=== PATIENT | female | born 1970 | race Caucasian/White ===

== ENCOUNTER 2021-08-24 12:06 | Outpatient (CLI) | payer OTHER, SELFPAY ==
--- NOTE | 2021-08-24 | XR_ITS ---
WS: [id number] LEFT CALCANEUS TECHNIQUE: Lateral and tangential view. HISTORY: FOOT PAIN COMPARISON: None available. The entire calcaneus is not included on the tangential view. The anterior calcaneal process has been excluded. Otherwise the calcaneus is intact. No acute fracture. XR/XR calcaneus LT min 2V [id number] IMPRESSION: As visualized, negative LEFT calcaneus.
== END 2021-08-24 12:07 | disposition home or self-care (01) ==
PROVIDERS: Visit Provider Nurse Practitioner
DX: M79.673 Pain in unspecified foot (principal)
CPT/HCPCS: 73650